=== PATIENT | male | born 1935 | race Caucasian/White ===

== ENCOUNTER 2021-03-26 11:46 | Inpatient (IN) ==
[2021-03-26] MEDS ORDERED: IOPAMIDOL 100 ML BOTTLE IV ONE (11:47)
[2021-03-26] MEDS ORDERED: LACTATED RINGERS 1,000 ML IV ONE ×2 (12:30→14:57)
--- NOTE | 2021-03-26 12:40 | Emergency Department Note ---
HPI General Chief complaint: Shortness of Breath/Dyspnea Stated complaint: sob/lethargy Time Seen by Provider: 03/26/21 12:16 Source: patient and family Mode of arrival: wheelchair Limitations: no limitations History of Present Illness HPI Narrative: Narrative: Patient is an 85-year-old male with history of atrial fibrillation who is on Eliquis. 6 days ago he fell while mowing the lawn ended up with a clavicle fr acture. A couple of days after that family noted that he seemed to be with a little bit of left facial droop but was able to move his face appropriately no definite slurred speech. He has been with chronic right shoulder pain for which she takes regular narcotic medications and is with chronic constipation. Since breaking the clavicle he had been with more pain medications and has been with worsening constipation and is waking up every 4 hours in pain because of the left shoulder pain as well as some spasm. He is brought in today because of some continued pain and generalized weakness. He has pain over the left chest as well as the left collarbone region. No headache or neck pain. No change in his medications other than the new narcotic medications. He notes at times he will get a spasm and will be a 10 out of 10 other times more moderate with the pain. Worse with palpation over the Chest and clavicle. Related Data Home Medications Medication Instructions Recorded Confirmed atorvastatin 80 mg PO DAILY 09/06/17 03/26/21 nitroglycerin 0.4 mg SL Q5M PRN 02/11/18 02/08/21 tamsulosin 0.4 mg PO DAILY 04/11/18 03/26/21 apixaban 2.5 mg tablet 2.5 mg PO BID 08/07/18 03/26/21 atorvastatin 80 mg PO QAM 03/26/21 03/26/21 escitalopram oxalate 5 mg PO QAM 03/26/21 03/26/21 hydrocodone-acetaminophen 1 tab PO Q4HP PRN 03/26/21 03/26/21 lisinopril 40 mg PO QAM 03/26/21 03/26/21 Allergies Allergy/AdvReac Type Severity Reaction Status Date / Time No Known Drug Allergies Allergy Verified 03/26/21 11:53 Review of Systems ROS ROS Narrative: Narrative: A 10 system review of systems was performed and found to be negative except as outlined above. PFSH Narrative Patient History Narrative: Narrative: Medical/Surgical/Family History All Active Problems (Updated 03/26/21 @ 20:49 by Sagar Antoine MD) Sensation of foreign body in esophagus (Acute) Clavicle fracture (Acute) Community acquired pneumonia of right lower lobe of lung (Acute) Fracture of rib of left side (Acute) Chronic right shoulder pain (Chronic) Subacromial bursitis of right shoulder joint (Chronic) Emphysema (subcutaneous) (surgical) resulting from a procedure (Chronic) History of tobacco use (Chronic) Anxiety disorder (Chronic) Presence of coronary angioplasty implant and graft (Chronic) Coronary artery disease (Chronic) Pain in thoracic spine (Chronic) Chronic pain (Chronic) Low back pain (Chronic) Atrial fibrillation, chronic (Chronic) Compression fracture of body of thoracic vertebra (Acute) Palpitations (Acute) Intraventricular conduction defect (Acute) Hypokalemia (Acute) Sternal fracture (Acute) Fall from standing (Acute) Multiple falls (Acute) Accidental medication error (Acute) Spasm of abdominal muscles (Acute) COPD exacerbation (Acute) CHF (congestive heart failure) (Acute) Hematuria (Chronic) Frequency of urination (Chronic) Hematuria (Acute) Nausea vomiting and diarrhea (Acute) Bradycardia (Acute) Hypertension, essential (Acute) History of myocardial infarct 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 60 years (Acute) Hyperlipidemia (Acute) Rash (Acute) Elevated lactic acid level (Acute) Elevated d-dimer (Acute) Medical History Anxiety disorder Atrial fibrillation, chronic on Eliquis Chronic pain Chronic right shoulder pain Coronary artery disease Emphysema (subcutaneous) (surgical) resulting from a procedure Frequency of urination Hematuria History of tobacco use Low back pain Pain in thoracic spine Subacromial bursitis of right shoulder joint Surgical History H/O thyroidectomy History of appendectomy History of surgery Vertebroplasty T11,T12, L1 w/sed 01/04/2019 Presence of coronary angioplasty implant and graft Family History Other No pertinent family history Social History Smoking Status: Former smoker Alcohol Intake Frequency: does not drink Substance Use: does not use Exam Narrative Narrative: Narrative: General: Alert, appropriately interactive, GCS [15] HEENT: NCAT, PERRL, Oral pharynx without lesion, No dental trauma or jaw malocclusion, No conjunctival pallor Neck: Trachea midline, No midline cervical spine tenderness. Chest: Left chest tenderness without crepitus. He has left chest hematoma arising from the area of the clavicle with noted deformity. No subcutaneous emphysema. Heart: Irregularly irregular and tachycardic at 1 10-1 20. Lungs: Coarse breath sounds bilaterally with patient somewhat splinting. Abdomen: Soft, nondistended, nontender : Pelvis is stable Back: Nontraumatic, No midline spine tenderness or deformity. No CVA tenderness to palpation. Skin: Noted ecchymosis over the left clavicle region. Extremity: No cyanosis or edema, pulses 1+ radial. No long bone deformities Neurologic: GCS [15], Moves all extremities in appropriate coordinated fashion with strength and sensation intact and symmetric throughout. Patient appears to be talking out the right side of his mouth with a question of some left facial droop but when I asked him to smile his facial movements are all symmetric without obvious asymmetry or deformity. General Limitations: no limitations Course Vital Signs Vital signs: Vital Signs Temperature 97.9 F 03/26/21 11:48 Pulse Rate 117 H 03/26/21 11:48 Respiratory Rate 20 03/26/21 11:48 Blood Pressure 77/51 03/26/21 11:48 Pulse Oximetry (%) 91 03/26/21 11:48 Temperature 97.9 F 03/26/21 11:48 Pulse Rate 117 H 03/26/21 11:48 Respiratory Rate 19 03/26/21 18:10 Blood Pressure 133/86 03/26/21 18:10 Pulse Oximetry (%) 91 03/26/21 11:48 [facility] Narrative Medical decision making narrative: Narrative: Patient is with transient hypotension which responded well to IV fluid hydration. I suspect that there is a degree of dehydration especially as exemplified by the BUN and creatinine being ongoing increase. Would be terrell rned the patient has not been getting up and adequately hydrating with his recent injury. CT of the head and neck did not show any intracranial hemorrhage and again patient is on anticoagulants. He was with 5 left-sided rib fractures as well as a sternal fracture. I suspect that this has affected patient's ability to take deep breaths or to cough and it would appear that he has ended up with a right lower lobe pneumonia. Patient was given IV Rocephin for treatment. He is saturating adequately well at this time. Given his recurrent falls with weakened state as well as his chest wall injuries and current pneumonia with risk for decompensation, I do not feel that he is appropriate for home discharge and he will be admitted to hospitalist service for further care and treatment. Lab Data Result diagrams: 03/26/21 13:14 03/26/21 13:14 Labs: Lab Results 03/26/21 03/26/21 03/26/21 Range/Units 13:14 13:14 13:14 WBC 9.9 (4.5-11.0) K/mcL RBC 4.29 L (4.50-5.90) M/mcL Hgb 12.5 L (13.5-16.5) g/dL Hct 40.2 L (41.0-55.0) % MCV 93.7 (80.0-100.0) fL MCH 29.1 (26.0-34.0) pg MCHC 31.1 (31.0-36.0) g/dL RDW 14.6 H (11.5-14.5) % Plt Count 229 (140-440) K/mcL MPV 10.3 (7.4-10.4) fL Neut % (Auto) 85.3 H (38.0-78.0) % Lymph % (Auto) 7.7 L (15.0-49.0) % Ceiba % (Auto) 6.6 (1.0-12.0) % Eos % (Auto) 0.2 (0.0-7.0) % Baso % (Auto) 0.2 (0.0-2.0) % Lymph # (Auto) 0.76 L (1.50-4.80) K/mcL Ceiba # (Auto) 0.65 (0.10-0.90) K/mcL Eos # (Auto) 0.02 (0.00-0.70) K/mcL Baso # (Auto) 0.02 (0.00-0.20) K/mcL Absolute Neutrophils 8.46 H (1.80-8.00) K/mcL PT 20.3 H (11.9-14.5) sec INR 1.7 H (0.9-1.1) ABG Methemoglobin (0.4-1.5) % VBG pH (7.32-7.42) U VBG pCO2 (41.0-51.0) mmHg VBG pO2 (25.0-40.0) mmHg VBG HCO3 (24.0-28.0) mmol/L VBG Total CO2 (25.0-29.0) mmol/L VBG O2 Saturation (40.0-70.0) % VBG Base Excess (-2-3) Carboxyhemoglobin (0.0-1.5) % THgb Total Hemoglobin (13.5-16.5) gm/Dl Sodium 139 (133-145) mmol/L Potassium 4.3 (3.3-5.1) mmol/L Chloride 103 (96-108) mmol/L Carbon Dioxide 24 (22-30) mmol/L Anion Gap 12.0 (8.0-16.0) BUN 39 H (8-23) mg/dL Creatinine 1.8 H (0.7-1.2) mg/dL GFR Calculation 34 Glucose 140 H (70-105) mg/dL Calcium 8.5 L (8.6-10.4) mg/dL Total Bilirubin 0.8 (0.1-1.0) mg/dL AST 15 (<40) U/L ALT 13 (<40) U/L Alkaline Phosphatase 70 (39-117) U/L Troponin T (<0.03) ng/mL Total Protein 6.1 (5.9-8.4) gm/dL Albumin 3.0 L (3.2-5.2) gm/dL Globulin 3.1 (2.2-3.7) gm/dL Albumin/Globulin Ratio 1.0 (1.0-2.3) Lipase 19 (7-60) U/L Procalcitonin (<0.10) ng/mL 03/26/21 03/26/21 03/26/21 Range/Units 13:14 13:14 13:37 WBC (4.5-11.0) K/mcL RBC (4.50-5.90) M/mcL Hgb (13.5-16.5) g/dL Hct (41.0-55.0) % MCV (80.0-100.0) fL MCH (26.0-34.0) pg MCHC (31.0-36.0) g/dL RDW (11.5-14.5) % Plt Count (140-440) K/mcL MPV (7.4-10.4) fL Neut % (Auto) (38.0-78.0) % Lymph % (Auto) (15.0-49.0) % Ceiba % (Auto) (1.0-12.0) % Eos % (Auto) (0.0-7.0) % Baso % (Auto) (0.0-2.0) % Lymph # (Auto) (1.50-4.80) K/mcL Ceiba # (Auto) (0.10-0.90) K/mcL Eos # (Auto) (0.00-0.70) K/mcL Baso # (Auto) (0.00-0.20) K/mcL Absolute Neutrophils (1.80-8.00) K/mcL PT (11.9-14.5) sec INR (0.9-1.1) ABG Methemoglobin 0.1 L (0.4-1.5) % VBG pH 7.30 L (7.32-7.42) U VBG pCO2 48.2 (41.0-51.0) mmHg VBG pO2 33.2 (25.0-40.0) mmHg VBG HCO3 23.2 L (24.0-28.0) mmol/L VBG Total CO2 24.7 L (25.0-29.0) mmol/L VBG O2 Saturation 51.2 (40.0-70.0) % VBG Base Excess -4 L (-2-3) Carboxyhemoglobin 3.8 H (0.0-1.5) % THgb Total Hemoglobin 13.5 (13.5-16.5) gm/Dl Sodium (133-145) mmol/L Potassium (3.3-5.1) mmol/L Chloride (96-108) mmol/L Carbon Dioxide (22-30) mmol/L Anion Gap (8.0-16.0) BUN (8-23) mg/dL Creatinine (0.7-1.2) mg/dL GFR Calculation Glucose (70-105) mg/dL Calcium (8.6-10.4) mg/dL Total Bilirubin (0.1-1.0) mg/dL AST (<40) U/L ALT (<40) U/L Alkaline Phosphatase (39-117) U/L Troponin T 0.02 (<0.03) ng/mL Total Protein (5.9-8.4) gm/dL Albumin (3.2-5.2) gm/dL Globulin (2.2-3.7) gm/dL Albumin/Globulin Ratio (1.0-2.3) Lipase (7-60) U/L Procalcitonin 0.12 H (<0.10) ng/mL ED POC Tests ED POC Tests: [facility] - SARS Antigen Negative CC TIME Critical Care Time Critical Care Time: Yes Total Critical Care Time: 40 Attestation: In the care and treatment of this patient with initial hypotension, multiple thoracic fractures as well as history of closed head injury on anticoagulants. This time is exclusive of separate billable procedure. Discharge Plan Patient/Caregiver Discharge Instructions Pt seen by WAREHOUSE ADMINISTRATOR/PA only: No Clinical Impression: Community acquired pneumonia of right lower lobe of lung, Clavicle fracture, Atrial fibrillation, chronic, Sternal fracture, Fracture of rib of left side Patient Disposition: Xfer As Inpt ([facility]) Condition: Fair Discharge Date/Time: 03/26/21 18:43
[2021-03-26] MEDS ORDERED: cefTRIAXone 2 GM in DEXTROSE 5% IN WATER 50 ML IV ONE ×2 (13:12→13:39)
--- NOTE | 2021-03-26 13:23 | Cat Scan Report ---
CLINICAL INFORMATION: Trauma. On anticoagulation COMPARISON: None. TECHNIQUE: 2.5 mm helical slices were obtained in the skull base to vertex. Following reconstruction, axial reformatted images were reviewed at bone and parenchymal windows. The exam was performed using radiation dose optimization techniques including, but not limited to, automated exposure control, adjustment of the mA and/or kV according to patient size and use of iterative reconstruction technique. FINDINGS: The ventricles, sulci, fissures, and cisterns are symmetrically enlarged bowel mild age-related atrophy. No extra-axial fluid collections are identified. Moderate patchy chronic ischemic changes in deep cerebral white matter expected for age.. There is no evidence of hemorrhage, mass effect, or edema. Bone windows show no osseous abnormality. IMPRESSION: Mild atrophy and chronic ischemic changes in the cerebral white matter-expected for age. There is no intracerebral hemorrhage or other posttraumatic change.. Interpreted and Authenticated by: Johnathon Turner 03/26/21
--- NOTE | 2021-03-26 13:46 | Cat Scan Report ---
CLINICAL INFORMATION: Trauma on anticoagulation. COMPARISON: Chest CT 02/09/[address] 08/27/2018 TECHNIQUE: Enteric contrast was utilized. 80 cc of Isovue-[id number] were injected intravenously, and 50 seconds later 2.5 mm helical slices were obtained from the lung apices through the subtrochanteric regions of the femurs. Following reconstruction, 2.5 mm sagittal, coronal and axial reformatted images were processed and reviewed at multiple windows and levels. 7 mm MIP reconstructions were obtained through the lungs to optimize nodule detection.The exam was performed using radiation dose optimization techniques including, but not limited to, automated exposure control, adjustment of the mA and/or kV according to patient size and use of iterative reconstruction technique. FINDINGS: Pulmonary parenchymal windows again shows complete chronic right middle lobe atelectasis. Moderate consolidated infiltrate has developed in the medial posterior lateral basilar segment right lower lobe since chest CT six weeks ago. Subsegmental atelectasis is developed in the posterior left lower lobe. Minor scarring is scattered within the lingula and throughout the upper lobes. Moderate centrilobular emphysema features chronic bronchitis with elevated lung volumes and wall thickening/ dilatation of bronchi. There are multiple bullae, predominantly within the right upper lobe, and before. There are no effusions or pneumothorax. The mediastinal windows show the heart is mildly enlarged with heavy calcific plaque in the coronary arteries. No change. Thoracic aorta and pulmonary arteries are normal in contour and caliber. Moderate hiatal hernia again noted. No hemorrhage, air or adenopathy in the mediastinum/hilum. Right thyroid lobe is diminutive and may been surgically resected-no change. Abdominal images show 7 mm simple cyst in the medial segment left hepatic lobe-stable. The gallbladder and bile ducts are normal: CBD is 5 mm. Both kidneys, adrenal glands, spleen, pancreas are normal. The aorta is normal diameter contains heavy calcific plaque. There are stenoses greater than 50% of both common iliac arteries. The other aortic branches contain plaque but no stenoses Pelvic images show marked prostate enlargement 6.2 x 4.7 cm. A 6.8 x 3.2 cm sessile soft tissue invaginating the urinary bladder base is almost certainly invagination of the peripheral enlarged prostate base. Small bilateral inguinal hernias containing only mesenteric fat. Seminal vesicles are normal. Sigmoid diverticulosis appreciated, but no evidence of diverticulitis. The remaining large bowel, appendix region, small bowel and stomach are grossly normal. There is a transverse fracture through the sternal body. The distal fragment displaced 4 mm posteriorly. No parasternal hemorrhage. There are also mild chronic T6-T7 and moderate chronic T8-T9 compression fracture which are stable. Vertebroplasty has arrested mild T11-T12 and L1 compression fractures. There are minimally displaced fractures of the left Sixth seventh eighth ninth and 10th ribs IMPRESSION: 1. Transverse mildly displaced fracture the proximal sternal body. There are also acute minimally displaced acute fractures of the left sixth through 10th ribs. No other acute posttraumatic change. 2. Moderate consolidated infiltrate in the medial posterior and lateral basilar segments of the right lower lobe-new from a comparison chest CT six weeks prior. This could represent infection or aspiration. It does not have characteristics of contusion. There is subsegmental atelectasis in the left base. 3. Moderate COPD stable. Complete chronic right middle lobe atelectasis-stable 4. Moderate hiatal hernia-stable 5. Mild cardiomegaly with heavy calcific plaque in the coronary arteries. 6. Marked prostate enlargement 7. Greater than 60% stenosis in both common iliac arteries. Please correlate with history of claudication and diminished groin pulses. 8. Sigmoid diverticulosis 9. Small bilateral inguinal hernias containing only mesenteric fat Interpreted and Authenticated by: Johnathon Turner 03/26/21
[2021-03-26 14:00] LABS: ABG Methemoglobin 0.1 % (0.4-1.5); Total Hemoglobin 13.5 gm/Dl (13.5-16.5); VBG Base Excess -4 (-2-3); VBG HCO3 23.2 mmol/L (24.0-28.0); VBG Oxygen Saturation 51.2 % (40.0-70.0); VBG PCO2 48.2 mmHg (41.0-51.0); VBG PO2 33.2 mmHg (25.0-40.0); VBG Total CO2 24.7 mmol/L (25.0-29.0)
[2021-03-26 14:05] LABS: Basophils # (Auto) 0.02 K/mcL (0.00-0.20); Basophils % (Auto) 0.2 % (0.0-2.0); Eosinophils # (Auto) 0.02 K/mcL (0.00-0.70); Eosinophils % (Auto) 0.2 % (0.0-7.0); Hematocrit 40.2 % (41.0-55.0); Hemoglobin 12.5 g/dL (13.5-16.5); Lymphocytes # (Auto) 0.76 K/mcL (1.50-4.80); Lymphocytes % (Auto) 7.7 % (15.0-49.0); Mean Cell Volume 93.7 fL (80.0-100.0); Mean Corpuscular HGB Conc 31.1 g/dL (31.0-36.0); Mean Platelet Volume 10.3 fL (7.4-10.4); Monocytes # (Auto) 0.65 K/mcL (0.10-0.90); Monocytes % (Auto) 6.6 % (1.0-12.0); Neutrophils % (Auto) 85.3 % (38.0-78.0); Platelet Count 229 K/mcL (140-440); RBC 4.29 M/mcL (4.50-5.90); Red Cell Distribution Width 14.6 % (11.5-14.5); WBC 9.9 K/mcL (4.5-11.0)
[2021-03-26 14:28] LABS: ALT/SGPT 13 U/L (<40); AST/SGOT 15 U/L (<40); Alkaline Phosphatase 70 U/L (39-117); Bilirubin,Total 0.8 mg/dL (0.1-1.0); Blood Urea Nitrogen 39 mg/dL (8-23); Calcium 8.5 mg/dL (8.6-10.4); Carbon Dioxide 24 mmol/L (22-30); Chloride 103 mmol/L (96-108); Globulin 3.1 gm/dL (2.2-3.7); Glomerular Filtration Rate 34; Glucose 140 mg/dL (70-105)
--- NOTE | 2021-03-26 14:33 | Cat Scan Report ---
CLINICAL INFORMATION: Trauma COMPARISON: None. TECHNIQUE: 0.625 mm helical slices were obtained from the skull base through the superior T2 end plate, and following reconstruction, 2.5 mm sagittal, coronal and axial reformations were then processed. The exam was reviewed at bone and soft tissue windows. The exam was performed using radiation dose optimization techniques including, but not limited to, automated exposure control, adjustment of the mA and/or kV according to patient size and use of iterative reconstruction technique. FINDINGS: The cervical spine is normal in curvature and alignment. There is no fracture or other osseous abnormality. The cervical cord is normal in contour and caliber and homogeneous attenuation-no evidence of hemorrhage. The soft tissues show moderately heavy calcific plaque in the carotid bifurcations At C2-3, mild broad disc protrusion minimally impinges the anterior thecal thecal sac At C3-4, moderate broad disc protrusion mildly impinges the anterior thecal sac. At C4-5, minimal broad disc protrusion minimally impinges the anterior thecal sac At C5-6, moderate broad disc spur, with right-sided asymmetry results in moderate right lateral recess and mild central canal narrowing mild left lateral recess narrowing. There is possible impingement of the exiting right C6 nerve root. The C6-7 and C7-T1 disc levels are normal. IMPRESSION: 1. No fracture or other acute posttraumatic change. 2. Mild Multilevel degeneration. Interpreted and Authenticated by: Johnathon Turner 03/26/21
[2021-03-26 14:51] LABS: INR 1.7 (0.9-1.1); Prothrombin Time 20.3 sec (11.9-14.5)
[2021-03-26] MEDS ORDERED: ONDANSETRON 4 MG/2 ML VIAL IV PRN ×2 (14:57→18:36)
[2021-03-26] MEDS ORDERED: HYDROmorphone 0.5 MG/0.5 ML SYRINGE IV PRN (14:57)
--- NOTE | 2021-03-26 16:44 | Internal Med History&Physical ---
HPI History of Present Illness Patient information: Note initiated : 03/26/21 at 4:34 pm Service Date, if different from initiated Date: [] Patient: Cr Aburto 85 y/o M admitted on for sob/lethargy. Chief Complaint: [] History of present illness: Mr. Aburto is a 85 year old M Who fell on the while mowing his lawn fracturing his left clavicle. He was to follow-up Dr. Hamilton. Since being home he is been feeling ill and increasingly weak. He is a poor oral intake and lethargy. Has increased shortness of breath and a cough not productive. He feels constipated. In the ED he was evaluated and found to have a rib fractures on the left 6 through 10 as well as a right lower lobe infiltrate that looks more like infectious as opposed to effusion. Also found to have acute kidney injury. Patient lives by himself and also concerned about self-care. I was told he was hypertensive in the ED although I see the lowest systolic recorded was 92. Patient denies chest pain other than the rib pain. Review of Systems: Pertinent positives as above. Denies headache/fever/chills/nausea/vomiting/chest or abdominal pain/diarrhea. 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) History of tobacco use (Chronic) Anxiety disorder (Chronic) Presence of coronary angioplasty implant and graft (Chronic) Coronary artery disease (Chronic) Pain in thoracic spine (Chronic) Chronic pain (Chronic) Low back pain (Chronic) Atrial fibrillation, chronic (Chronic) Compression fracture of body of thoracic vertebra (Acute) Palpitations (Acute) Intraventricular conduction defect (Acute) Hypokalemia (Acute) Sternal fracture (Acute) Fall from standing (Acute) Multiple falls (Acute) Accidental medication error (Acute) Spasm of abdominal muscles (Acute) COPD exacerbation (Acute) CHF (congestive heart failure) (Acute) Hematuria (Chronic) Frequency of urination (Chronic) Hematuria (Acute) Nausea vomiting and diarrhea (Acute) Bradycardia (Acute) Hypertension, essential (Acute) History of myocardial infarct 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 60 years (Acute) Hyperlipidemia (Acute) Rash (Acute) Elevated lactic acid level (Acute) Elevated d-dimer (Acute) Medical History Anxiety disorder Atrial fibrillation, chronic on Eliquis Chronic pain Chronic right shoulder pain Coronary artery disease Emphysema (subcutaneous) (surgical) resulting from a procedure Frequency of urination Hematuria History of tobacco use Low back pain Pain in thoracic spine Subacromial bursitis of right shoulder joint Surgical History H/O thyroidectomy History of appendectomy History of surgery Vertebroplasty T11,T12, L1 w/sed 01/04/2019 Presence of coronary angioplasty implant and graft Family History Other No pertinent family history Social History (Updated 03/26/21 @ 16:37 by Luis Armando Simmons DO) alcohol intake frequency: does not drink substance use type: does not use additional history: Social history: Former smoker quit 8 years ago Ambulates with a walker Lives by himself MEDS/ALLERGIES Home Medications and Allergies Home Medications Medication Instructions Recorded Confirmed Type atorvastatin 80 mg PO DAILY 09/06/17 03/26/21 History nitroglycerin 0.4 mg SL Q5M PRN 02/11/18 02/08/21 History tamsulosin 0.4 mg PO DAILY 04/11/18 03/26/21 History apixaban 2.5 mg tablet 2.5 mg PO BID 08/07/18 03/26/21 History atorvastatin 80 mg PO QAM 03/26/21 03/26/21 History escitalopram oxalate 5 mg PO QAM 03/26/21 03/26/21 History hydrocodone-acetaminophen 1 tab PO Q4HP PRN 03/26/21 03/26/21 History lisinopril 40 mg PO QAM 03/26/21 03/26/21 History Allergies Allergy/AdvReac Type Severity Reaction Status Date / Time No Known Drug Allergies Allergy Verified 03/26/21 11:53 EXAM Constitutional Vitals: Temp Pulse Resp BP Pulse Ox 97.9 F 117 H 18 102/77 91 03/26/21 11:48 03/26/21 11:48 03/26/21 16:19 03/26/21 16:19 03/26/21 11:48 Exam: General: Alert, Awake, No acute Distress Eyes/N/T: EOMI, PERRL, dry MM Head/Neck: neck supple, normocephalic atraumatic CV: RRR, No murmurs, normal s1/s2 Pulm: Mild right base rhonchi , no wheezing Abd: soft, nontender, +BS x4 Ext: no clubbing/cyanosis/edema Neuro: Alert, no focal deficits, moves all extremities, CN 2-12 grossly intact, symmetrical strength b/l upper/lower, sensations intact b/l upper/lower Skin: warm/dry DATA Data Completed and Pending Labs: Labs from last 24 hours 03/26/21 03/26/21 03/26/21 13:37 13:14 13:14 WBC RBC Hgb Hct MCV MCH MCHC RDW Plt Count MPV Neut % (Auto) Lymph % (Auto) [place] % (Auto) Eos % (Auto) Baso % (Auto) Lymph # (Auto) [place] # (Auto) Eos # (Auto) Baso # (Auto) Absolute Neutrophils PT INR ABG Methemoglobin 0.1 L VBG pH 7.30 L VBG pCO2 48.2 VBG pO2 33.2 VBG HCO3 23.2 L VBG Total CO2 24.7 L VBG O2 Saturation 51.2 VBG Base Excess -4 L Carboxyhemoglobin 3.8 H Total Hemoglobin 13.5 Sodium Potassium Chloride Carbon Dioxide Anion Gap BUN Creatinine GFR Calculation Glucose Calcium Total Bilirubin AST ALT Alkaline Phosphatase Troponin T 0.02 Total Protein Albumin Globulin Albumin/Globulin Ratio Lipase Procalcitonin 0.12 H 03/26/21 03/26/21 03/26/21 13:14 13:14 13:14 WBC 9.9 RBC 4.29 L Hgb 12.5 L Hct 40.2 L MCV 93.7 MCH 29.1 MCHC 31.1 RDW 14.6 H Plt Count 229 MPV 10.3 Neut % (Auto) 85.3 H Lymph % (Auto) 7.7 L [place] % (Auto) 6.6 Eos % (Auto) 0.2 Baso % (Auto) 0.2 Lymph # (Auto) 0.76 L [place] # (Auto) 0.65 Eos # (Auto) 0.02 Baso # (Auto) 0.02 Absolute Neutrophils 8.46 H PT 20.3 H INR 1.7 H ABG Methemoglobin VBG pH VBG pCO2 VBG pO2 VBG HCO3 VBG Total CO2 VBG O2 Saturation VBG Base Excess Carboxyhemoglobin Total Hemoglobin Sodium 139 Potassium 4.3 Chloride 103 Carbon Dioxide 24 Anion Gap 12.0 BUN 39 H Creatinine 1.8 H GFR Calculation 34 Glucose 140 H Calcium 8.5 L Total Bilirubin 0.8 AST 15 ALT 13 Alkaline Phosphatase 70 Troponin T Total Protein 6.1 Albumin 3.0 L Globulin 3.1 Albumin/Globulin Ratio 1.0 Lipase 19 Procalcitonin A/P Narrative A/P Narrative: A: *RLL pneumonia: -CURB 3 -on room air at this time *Hypotensive: 2/2 volume depletion, responded in ED to IV *Volume depletion: *REBECCA on CKD III: *Left 6-10 rib fx: from recent fall while mowing lawn *Afib: on eliquis, do not see any AV redd blockers on home meds. *COPD(no home O2): *HTN/HLD: On lisinopril *Depression: *Chronic right shoulder pain: *Generalized weakness/deconditioning: P: -Rocephin/azithromycin -pending BC/SC -IS/Acapella, prn nebs -IVF -monitor renal fxn/uop -hold home ACEI - -pt/ot -CM -ppx: eliquis DNR Time Spent With Patient Time: Total time spent is greater than 50% in coordination of care (as documented) at patient's floor/unit and/or counseling patient:
[2021-03-26] MEDS ORDERED: ACETAMINOPHEN 325 MG TABLET PO PRN (18:36)
[2021-03-26] MEDS ORDERED: MAGNESIUM SULFATE 2 GM/50 ML BAG IV PRN (18:36)
[2021-03-26] MEDS ORDERED: IPRATROPIUM/ALBUTEROL 3 ML AMPUL.NEB NEB PRN (18:36)
[2021-03-26] MEDS ORDERED: 0.9 % SODIUM CHLORIDE 1,000 ML IV SCH (18:36)
[2021-03-26] MEDS ORDERED: LACTULOSE 20 GM/30 ML ORAL.SOL PO PRN (18:36)
[2021-03-26] MEDS ORDERED: POTASSIUM CHLORIDE 20 MEQ TABLET PO PRN ×2 (18:36)
[2021-03-26] MEDS ORDERED: LABETALOL 5 MG/ML ML IV PRN (18:36)
[2021-03-26] MEDS ORDERED: POTASSIUM CHLORIDE 40 MEQ in DEXTROSE 5% IN WATER 500 ML IV PRN (18:36)
[2021-03-26] MEDS ORDERED: HYDROcodone/APAP (PP) 7.5/325MG TABLET (#4) PO PRN (18:36)
[2021-03-26] MEDS ORDERED: SENNOSIDES 1 TABLET PO PRN (18:36)
[2021-03-26] MEDS ORDERED: morphine 4 MG/ML VIAL IV PRN (18:36)
[2021-03-26] MEDS ORDERED: METOPROLOL TARTRATE 5 MG/5 ML VIAL IV PRN (18:36)
[2021-03-26] MEDS: AZITHROMYCIN 500 MG in DEXTROSE 5% IN WATER 250 ML IV SCH (19:08)
[2021-03-26] MEDS: cefTRIAXone 2 GM in DEXTROSE 5% IN WATER 50 ML IV SCH (20:56)
[2021-03-26] MEDS: APIXABAN 5 MG TABLET PO SCH (21:25)
[2021-03-26] MEDS: POLYETHYLENE GLYCOL 3350 17 GM PACKET PO SCH (21:25)
[2021-03-26] MEDS: HYDROCODONE/APAP 7.5/325MG TABLET PO PRN (21:28)
[2021-03-26] MEDS: DOCUSATE SODIUM 100 MG CAPSULE PO SCH (21:28)
[2021-03-26] MEDS: 0.9 % SODIUM CHLORIDE 10 ML SYRINGE IV SCH (21:29)
[2021-03-27 00:22] LABS: Appearance,Urine HAZY (Clear); Bilirubin,Urine Negative (Negative); Color,Urine YELLOW; Culture Indicated,Urine No; Glucose,Urine (UA) Negative (Negative); Ketones,Urine Negative (Negative); Leukocyte Esterase,Urine Negative /ug (Negative); Mucus,Urine FEW /hpf; Nitrate,Urine Negative (Negative); Protein,Urine 30 mg/dL (Negative); Specific Gravity,Urine 1.047 (1.000-1.035); Urine Blood 0.03 mg/dL (Negative); Urine RBC 1 /hpf (0-3); Urine Squamous Epithelial Cell 0 /hpf (0-4); Urine WBC 3 /hpf (0-4); Urobilinogen,Urine Negative
[2021-03-27] MEDS: HYDROCODONE/APAP 7.5/325MG TABLET PO PRN ×4 (04:37→21:18)
[2021-03-27] MEDS: 0.9 % SODIUM CHLORIDE 10 ML SYRINGE IV SCH ×3 (04:38→21:19)
--- NOTE | 2021-03-27 06:57 | Internal Med Progress Note ---
SUBJECTIVE Subjective Patient information: Note initiated : 03/27/21 at 6:53 am Service Date, if different from initiated Date: [] Patient: Cr Aburto 85 y/o M admitted on 03/26/21 for sob/lethargy. Chief Complaint: [] Interval history: History of present illness: Mr. Aburto is a 85 year old M Who fell on the 11 while mowing his lawn fracturing his left clavicle. He was to follow-up Dr. Hamilton. Since being home he is been feeling ill and increasingly weak. He is a poor oral intake and lethargy. Has increased shortness of breath and a cough not productive. He feels constipated. In the ED he was evaluated and found to have a rib fractures on the left 6 through 10 as well as a right lower lobe infiltrate that looks more like infectious as opposed to effusion. Also found to have acute kidney injury. Patient lives by himself and also concerned about self-care. I was told he was hypertensive in the ED although I see the lowest systolic recorded was 92. Patient denies chest pain other than the rib 03/27 States poor sleep last night. Has cough but unable to produce sputum. Feels the shortness of breath is better. Review of Systems: denies headache/fever/chills/nausea/vomiting/chest or abdominal pain/diarrhea. Otherwise see above. Constitutional Vitals: Vital Signs Temp Pulse Resp BP Pulse Ox 97.8 F 70 20 155/84 98 03/27/21 03:25 03/27/21 03:25 03/27/21 03:25 03/27/21 03:25 03/27/21 03:25 Period Temp Pulse Resp BP Sys/[place] Pulse Ox Last 24 Hr 97.7 F-97.9 F 65-117 6-29 77-155/51-106 91-98 Intake and Output 03/26/21 03/27/21 03/27/21 21:59 05:59 13:59 Intake Total 2250 50 Output Total 50 51 Balance 2200 -1 Weight 60.282 kg Intake & Output: Intake & Output 03/26/21 03/27/21 03/27/21 21:59 05:59 13:59 Intake Total 2250 50 Output Total 50 51 Balance 2200 -1 Weight 60.282 kg Intake: IV 2250 Sodium Chloride 0.9% 1,000 ml @ 0 75 mls/hr IV .[id number] [facility] Rx#: [id number] Zithromax 500 mg In Dextrose 5% 250 in Water 250 ml @ 250 mls/hr IV Q24H [facility] Rx#:[id number] Lactated Ringers 1,000 ml @ 2000 Wide Open IV [facility] Rx#: [id number] Oral 50 Output: Void Amount 50 50 # of times incontinent of urine 1 Other: Urine Color Dark Yellow # Voids 1 Exam: General: Alert, Awake, No acute Distress Eyes/N/T: EOMI, Head/Neck: neck supple, CV: RRR, No murmurs, Pulm: Mild right base rhonchi , no wheezing Abd: soft, nontender, +BS x4 Ext: no clubbing/cyanosis/edema Neuro: Alert, no focal deficits, moves all extremities, Skin: warm/dry OBJ DATA Labs CBC & Chem 7: 03/27/21 05:30 03/26/21 13:14 Labs: Abnormal Lab Results 03/26/21 03/26/21 03/26/21 23:38 13:37 13:14 RBC Hgb Hct RDW Neut % (Auto) Lymph % (Auto) Lymph # (Auto) Absolute Neutrophils PT INR ABG Methemoglobin 0.1 L VBG pH 7.30 L VBG HCO3 23.2 L VBG Total CO2 24.7 L VBG Base Excess -4 L Carboxyhemoglobin 3.8 H BUN Creatinine Glucose Calcium Albumin Procalcitonin 0.12 H Urine Appearance Hazy A Urine Protein 30 A Urine Mucus Few A 03/26/21 03/26/21 03/26/21 13:14 13:14 13:14 RBC 4.29 L Hgb 12.5 L Hct 40.2 L RDW 14.6 H Neut % (Auto) 85.3 H Lymph % (Auto) 7.7 L Lymph # (Auto) 0.76 L Absolute Neutrophils 8.46 H PT 20.3 H INR 1.7 H ABG Methemoglobin VBG pH VBG HCO3 VBG Total CO2 VBG Base Excess Carboxyhemoglobin BUN 39 H Creatinine 1.8 H Glucose 140 H Calcium 8.5 L Albumin 3.0 L Procalcitonin Urine Appearance Urine Protein Urine Mucus Meds: Medications Acetaminophen (Acetaminophen 325 Mg Tablet) 650 mg PO Q6HP PRN PRN Reason: PAIN/FEVER > 101 Hydrocodone Bitart/Acetaminophen (Hydrocodone/Apap 7.5/325mg Tablet) 1 tab PO Q4HP PRN; Protocol PRN Reason: Per Pain Protocol Last Admin: 03/27/21 04:37 Dose: 1 tab Documented by: Albuterol/Ipratropium (Ipratropium/Albuterol 3 Ml Ampul.Neb) 3 ml NEB Q4HP PRN PRN Reason: Shortness Of Breath Apixaban (Apixaban 5 Mg Tablet) 2.5 mg PO BID [facility] Last Admin: 03/26/21 21:25 Dose: 2.5 mg Documented by: Atorvastatin Calcium (Atorvastatin 40 Mg Tablet) 80 mg PO DAILY [facility] Docusate Sodium (Docusate Sodium 100 Mg Capsule) 100 mg PO BID [facility] Last Admin: 03/26/21 21:28 Dose: 100 mg Documented by: Escitalopram Oxalate (Escitalopram 10 Mg Tablet) 5 mg PO QAM [facility] Potassium Chloride 40 meq/ (Dextrose) 520 mls @ 130 mls/hr IV UD PRN PRN Reason: Potassium < 3 Magnesium Sulfate (Magnesium Sulfate) 2 gm in 50 mls @ 50 mls/hr IV UD PRN PRN Reason: Magnesium </= 1.6 Sodium Chloride (Sodium Chloride 0.9%) 1,000 mls @ 75 mls/hr IV .[id number] [facility] Stop: 03/27/21 21:15 Last Infusion: 03/26/21 20:09 Dose: 75 mls/hr Documented by: Ceftriaxone Sodium 2 gm/ (Dextrose) 50 mls @ 100 mls/hr IV Q24H [facility]; Protocol Last Admin: 03/26/21 20:56 Dose: Not Given Documented by: Azithromycin 500 mg/ Dextrose 250 mls @ 250 mls/hr IV Q24H [facility]; Protocol Stop: 03/28/21 19:35 Last Infusion: 03/26/21 20:08 Dose: Infused Documented by: Labetalol HCl (Labetalol 5 Mg/Ml Ml) 0 mg IV Q2HP PRN PRN Reason: Hypertension Lactulose (Lactulose 20 Gm/30 Ml Oral.Emi) 20 gm PO DAILYP PRN PRN Reason: Constipation Metoprolol Tartrate (Metoprolol Tartrate 5 Mg/5 Ml Vial) 5 mg IV Q2HP PRN PRN Reason: Tachyarrhythmias HR>110 Morphine Sulfate (Morphine 4 Mg/Ml Vial) 0 mg IV Q3HP PRN PRN Reason: Pain Ondansetron HCl (Ondansetron 4 Mg/2 Ml Vial) 4 mg IV Q4HP PRN PRN Reason: Nausea And Vomiting Polyethylene Glycol (Polyethylene Glycol 3350 17 Gm Packet) 17 gm PO DAILY [facility] Last Admin: 03/26/21 21:25 Dose: 17 gm Documented by: Potassium Chloride (Potassium Chloride 20 Meq Tablet) 40 meq PO UD PRN PRN Reason: Potssium is 3-3.5 Potassium Chloride (Potassium Chloride 20 Meq Tablet) 40 meq PO UD PRN PRN Reason: Potassium < 3 Senna (Sennosides 1 Tablet) 2 tab PO DAILYP PRN PRN Reason: Constipation Sodium Chloride (0.9 % Sodium Chloride 10 Ml Syringe) 10 ml IV Q8 [facility] Last Admin: 03/27/21 04:38 Dose: 10 ml Documented by: Tamsulosin HCl (Tamsulosin 0.4 Mg Capsule) 0.4 mg PO DAILY [facility] ABG Interpretation ABG results: 03/26/21 13:37 ABG Methemoglobin 0.1 L VBG pH 7.30 L VBG pCO2 48.2 VBG pO2 33.2 VBG HCO3 23.2 L VBG Total CO2 24.7 L VBG O2 Saturation 51.2 VBG Base Excess -4 L A/P Narrative A/P Narrative: A: *RLL pneumonia: -CURB 3 -place on O2 last night 3L sats mid to high 90's *Hypotensive: 2/2 volume depletion, responded in ED to IV *Volume depletion: improved *REBECCA on CKD III: *Left 6-10 rib fx: from recent fall while mowing lawn *Afib: on eliquis, do not see any AV redd blockers on home meds. *COPD(no home O2): *HTN/HLD: On lisinopril *Depression: *Chronic right shoulder pain: *Generalized weakness/deconditioning: P: -Rocephin/azithromycin -pending BC/SC -IS/Acapella, prn nebs, wean O2 -IVF -monitor renal fxn/uop -hold home ACEI - -pt/ot -CM -ppx: eliquis DNR Time Spent With Patient Time: Total time spent is greater than 50% in coordination of care (as documented) at patient's floor/unit and/or counseling patient:
[2021-03-27 07:25] LABS: Hematocrit 34.7 % (41.0-55.0); Hemoglobin 10.7 g/dL (13.5-16.5); Mean Corpuscular HGB Conc 30.8 g/dL (31.0-36.0); Mean Platelet Volume 10.3 fL (7.4-10.4); Platelet Count 224 K/mcL (140-440); RBC 3.73 M/mcL (4.50-5.90); Red Cell Distribution Width 14.5 % (11.5-14.5); WBC 7.8 K/mcL (4.5-11.0)
[2021-03-27] MEDS ORDERED: diphenhydrAMINE 25 MG CAPSULE PO PRN (07:53)
[2021-03-27 08:04] LABS: ALT/SGPT 12 U/L (<40); AST/SGOT 16 U/L (<40); Albumin 2.6 gm/dL (3.2-5.2); Albumin/Globulin Ratio 0.9 (1.0-2.3); Alkaline Phosphatase 59 U/L (39-117); Bilirubin,Direct 0.2 mg/dL (<0.3); Bilirubin,Total 0.6 mg/dL (0.1-1.0); Blood Urea Nitrogen 31 mg/dL (8-23); Calcium 8.3 mg/dL (8.6-10.4); Carbon Dioxide 26 mmol/L (22-30); Chloride 104 mmol/L (96-108); Globulin 2.9 gm/dL (2.2-3.7); Glomerular Filtration Rate 46; Glucose 85 mg/dL (70-105); Lactate Dehydrogenase 186 U/L (135-225); Triglycerides 63 mg/dL (<150); Uric Acid 7.1 mg/dL (2.5-8.0)
[2021-03-27] MEDS ORDERED: POTASSIUM CHLORIDE 40 MEQ in DEXTROSE 5% IN WATER 500 ML IV ONE (09:01)
[2021-03-27] MEDS: TAMSULOSIN 0.4 MG CAPSULE PO SCH (09:06)
[2021-03-27] MEDS: ESCITALOPRAM 10 MG TABLET PO SCH (09:06)
[2021-03-27] MEDS: APIXABAN 5 MG TABLET PO SCH ×2 (09:06→21:18)
[2021-03-27] MEDS: DOCUSATE SODIUM 100 MG CAPSULE PO SCH ×2 (09:06→21:19)
[2021-03-27] MEDS: ATORVASTATIN 40 MG TABLET PO SCH (09:06)
[2021-03-27] MEDS: POLYETHYLENE GLYCOL 3350 17 GM PACKET PO SCH (09:07)
[2021-03-27] MEDS: cefTRIAXone 2 GM in DEXTROSE 5% IN WATER 50 ML IV SCH (09:17)
[2021-03-27] MEDS: AZITHROMYCIN 500 MG in DEXTROSE 5% IN WATER 250 ML IV SCH (12:06)
[2021-03-27 13:24] LABS: Lymphocytes % 18 % (15-49); Monocytes % (Manual) 10 % (1-12); Platelet Estimate NORMAL (Normal); RBC Morphology NORMAL (Normal); Segmented Neutrophils % 72 % (38-78)
[2021-03-27] MEDS: MELATONIN 3 MG TABLET PO SCH (21:18)
[2021-03-28] MEDS: HYDROCODONE/APAP 7.5/325MG TABLET PO PRN ×3 (01:05→20:50)
[2021-03-28] MEDS: 0.9 % SODIUM CHLORIDE 10 ML SYRINGE IV SCH ×3 (05:15→23:36)
--- NOTE | 2021-03-28 07:20 | Internal Med Progress Note ---
SUBJECTIVE Subjective Patient information: Note initiated : 03/28/21 at 7:17 am Service Date, if different from initiated Date: [] Patient: Cr Aburto 85 y/o M admitted on 03/26/21 for sob/lethargy. Chief Complaint: [] Interval history: History of present illness: Mr. Aburto is a 85 year old M Who fell on the while mowing his lawn fracturing his left clavicle. He was to follow-up Dr. Hamilton. Since being home he is been feeling ill and increasingly weak. He is a poor oral intake and lethargy. Has increased shortness of breath and a cough not productive. He feels constipated. In the ED he was evaluated and found to have a rib fractures on the left 6 through 10 as well as a right lower lobe infiltrate that looks more like infectious as opposed to effusion. Also found to have acute kidney injury. Patient lives by himself and also concerned about self-care. I was told he was hypertensive in the ED although I see the lowest systolic recorded was 92. Patient denies chest pain other than the rib 03/27 States poor sleep last night. Has cough but unable to produce sputum. Feels the shortness of breath is better. 03/28 States poor sleep again. Has cough occasionally productive. No other pains or complaints. On room air. Review of Systems: denies headache/fever/chills/nausea/vomiting/chest or abdominal pain/diarrhea. Otherwise see above. Constitutional Vitals: Vital Signs Temp Pulse Resp BP Pulse Ox 97.5 F 61 14 168/91 93 03/28/21 03:10 03/28/21 03:10 03/28/21 03:10 03/28/21 03:10 03/28/21 03:10 Period Temp Pulse Resp BP Sys/[place] Pulse Ox Last 24 Hr 97.4 F-99 F 61-88 14-20 119-168/75-91 93-96 Intake and Output 03/27/21 03/28/21 03/28/21 21:59 05:59 13:59 Intake Total 980 225 Output Total 200 75 Balance 780 150 Weight 61.326 kg Intake & Output: Intake & Output 03/27/21 03/28/21 03/28/21 21:59 05:59 13:59 Intake Total 980 225 Output Total 200 75 Balance 780 150 Weight 61.326 kg Intake: Oral 980 225 Output: Void Amount 200 75 Other: Meal Dinner Percent of Meal Consumed 25% Feeding Ability Assist with Tray Set Up Urine Appearance Clear Clear Urine Color Bright Yellow Dark Yellow Urine Odor Strong Normal Stool Size Large Small Stool Color Brown Brown Yellow Stool Consistency Soft Liquid Formed Loose # Bowel Movements 1 1 # of times incontinent of 1 Bowels Exam: Alert, Awake, No acute Distress Eyes/N/T: EOMI, Head/Neck: neck supple, CV: RRR, No murmurs, Pulm: decreased rhonchi , no wheezing Abd: soft, nontender, +BS x4 Ext: no clubbing/cyanosis/edema Neuro: Alert, no focal deficits, moves all extremities, Skin: warm/dry OBJ DATA Labs CBC & Chem 7: 03/27/21 05:30 03/27/21 05:30 Labs: Abnormal Lab Results 03/27/21 03/27/21 03/26/21 05:30 05:30 23:38 RBC 3.73 L Hgb 10.7 L Hct 34.7 L MCHC 30.8 L RDW Neut % (Auto) Lymph % (Auto) Lymph # (Auto) Absolute Neutrophils PT INR ABG Methemoglobin VBG pH VBG HCO3 VBG Total CO2 VBG Base Excess Carboxyhemoglobin Anion Gap 7.0 L BUN 31 H Creatinine 1.4 H Glucose Calcium 8.3 L C-Reactive Protein 8.00 H Total Protein 5.5 L Albumin 2.6 L Albumin/Globulin Ratio 0.9 L Procalcitonin Urine Appearance Hazy A Urine Protein 30 A Urine Mucus Few A 03/26/21 03/26/21 03/26/21 13:37 13:14 13:14 RBC Hgb Hct MCHC RDW Neut % (Auto) Lymph % (Auto) Lymph # (Auto) Absolute Neutrophils PT 20.3 H INR 1.7 H ABG Methemoglobin 0.1 L VBG pH 7.30 L VBG HCO3 23.2 L VBG Total CO2 24.7 L VBG Base Excess -4 L Carboxyhemoglobin 3.8 H Anion Gap BUN Creatinine Glucose Calcium C-Reactive Protein Total Protein Albumin Albumin/Globulin Ratio Procalcitonin 0.12 H Urine Appearance Urine Protein Urine Mucus 03/26/21 03/26/21 13:14 13:14 RBC 4.29 L Hgb 12.5 L Hct 40.2 L MCHC RDW 14.6 H Neut % (Auto) 85.3 H Lymph % (Auto) 7.7 L Lymph # (Auto) 0.76 L Absolute Neutrophils 8.46 H PT INR ABG Methemoglobin VBG pH VBG HCO3 VBG Total CO2 VBG Base Excess Carboxyhemoglobin Anion Gap BUN 39 H Creatinine 1.8 H Glucose 140 H Calcium 8.5 L C-Reactive Protein Total Protein Albumin 3.0 L Albumin/Globulin Ratio Procalcitonin Urine Appearance Urine Protein Urine Mucus Meds: Medications Acetaminophen (Acetaminophen 325 Mg Tablet) 650 mg PO Q6HP PRN PRN Reason: PAIN/FEVER > 101 Hydrocodone Bitart/Acetaminophen (Hydrocodone/Apap 7.5/325mg Tablet) 1 tab PO Q4HP PRN; Protocol PRN Reason: Per Pain Protocol Last Admin: 03/28/21 05:14 Dose: 1 tab Documented by: Albuterol/Ipratropium (Ipratropium/Albuterol 3 Ml Ampul.Neb) 3 ml NEB Q4HP PRN PRN Reason: Shortness Of Breath Apixaban (Apixaban 5 Mg Tablet) 2.5 mg PO BID [facility] Last Admin: 03/27/21 21:18 Dose: 2.5 mg Documented by: Atorvastatin Calcium (Atorvastatin 40 Mg Tablet) 80 mg PO DAILY [facility] Last Admin: 03/27/21 09:06 Dose: 80 mg Documented by: Diphenhydramine HCl (Diphenhydramine 25 Mg Capsule) 25 mg PO HSP PRN PRN Reason: Insomnia Docusate Sodium (Docusate Sodium 100 Mg Capsule) 100 mg PO BID [facility] Last Admin: 03/27/21 21:19 Dose: 100 mg Documented by: Escitalopram Oxalate (Escitalopram 10 Mg Tablet) 5 mg PO QAM [facility] Last Admin: 03/27/21 09:06 Dose: 5 mg Documented by: Potassium Chloride 40 meq/ (Dextrose) 520 mls @ 130 mls/hr IV UD PRN PRN Reason: Potassium < 3 Magnesium Sulfate (Magnesium Sulfate) 2 gm in 50 mls @ 50 mls/hr IV UD PRN PRN Reason: Magnesium </= 1.6 Ceftriaxone Sodium 2 gm/ (Dextrose) 50 mls @ 100 mls/hr IV Q24H [facility]; Protocol Last Infusion: 03/27/21 09:50 Dose: Infused Documented by: Azithromycin 500 mg/ Dextrose 250 mls @ 250 mls/hr IV Q24H [facility]; Protocol Stop: 03/28/21 19:35 Last Infusion: 03/27/21 13:10 Dose: Infused Documented by: Labetalol HCl (Labetalol 5 Mg/Ml Ml) 0 mg IV Q2HP PRN PRN Reason: Hypertension Lactulose (Lactulose 20 Gm/30 Ml Oral.Emi) 20 gm PO DAILYP PRN PRN Reason: Constipation Melatonin (Melatonin 3 Mg Tablet) 3 mg PO QHS [facility] Last Admin: 03/27/21 21:18 Dose: 3 mg Documented by: Metoprolol Tartrate (Metoprolol Tartrate 5 Mg/5 Ml Vial) 5 mg IV Q2HP PRN PRN Reason: Tachyarrhythmias HR>110 Morphine Sulfate (Morphine 4 Mg/Ml Vial) 0 mg IV Q3HP PRN PRN Reason: Pain Ondansetron HCl (Ondansetron 4 Mg/2 Ml Vial) 4 mg IV Q4HP PRN PRN Reason: Nausea And Vomiting Polyethylene Glycol (Polyethylene Glycol 3350 17 Gm Packet) 17 gm PO DAILY [facility] Last Admin: 03/27/21 09:07 Dose: Not Given Documented by: Potassium Chloride (Potassium Chloride 20 Meq Tablet) 40 meq PO UD PRN PRN Reason: Potssium is 3-3.5 Potassium Chloride (Potassium Chloride 20 Meq Tablet) 40 meq PO UD PRN PRN Reason: Potassium < 3 Senna (Sennosides 1 Tablet) 2 tab PO DAILYP PRN PRN Reason: Constipation Sodium Chloride (0.9 % Sodium Chloride 10 Ml Syringe) 10 ml IV Q8 [facility] Last Admin: 03/28/21 05:15 Dose: 10 ml Documented by: Tamsulosin HCl (Tamsulosin 0.4 Mg Capsule) 0.4 mg PO DAILY [facility] Last Admin: 03/27/21 09:06 Dose: 0.4 mg Documented by: ABG Interpretation ABG results: 03/26/21 13:37 ABG Methemoglobin 0.1 L VBG pH 7.30 L VBG pCO2 48.2 VBG pO2 33.2 VBG HCO3 23.2 L VBG Total CO2 24.7 L VBG O2 Saturation 51.2 VBG Base Excess -4 L A/P Narrative A/P Narrative: A: *RLL pneumonia: -CURB 3 -on room air *Hypotensive: 2/2 volume depletion, responded in ED to IV *Volume depletion: improved *REBECCA on CKD III: *Left 6-10 rib fx: from recent fall while mowing lawn *Afib: on eliquis, do not see any AV redd blockers on home meds, HR controlled *COPD(no home O2): *HTN/HLD: On lisinopril *Depression: *Chronic right shoulder pain: *Generalized weakness/deconditioning: P: -Rocephin/azithromycin -pending BC/SC -IS/Acapella, prn nebs, wean O2 -IVF -monitor renal fxn/uop -home ACEI held initially - -pt/ot -CM for SNF vs C -ppx: eliquis DNR Time Spent With Patient Time: Total time spent is greater than 50% in coordination of care (as documented) at patient's floor/unit and/or counseling patient:
[2021-03-28 08:56] LABS: Blood Urea Nitrogen 22 mg/dL (8-23); Calcium 8.7 mg/dL (8.6-10.4); Carbon Dioxide 26 mmol/L (22-30); Chloride 105 mmol/L (96-108); Glomerular Filtration Rate 61; Glucose 83 mg/dL (70-105)
[2021-03-28] MEDS: cefTRIAXone 2 GM in DEXTROSE 5% IN WATER 50 ML IV SCH (09:28)
[2021-03-28] MEDS: ESCITALOPRAM 10 MG TABLET PO SCH (09:28)
[2021-03-28] MEDS: DOCUSATE SODIUM 100 MG CAPSULE PO SCH ×2 (09:28→20:50)
--- NOTE | 2021-03-28 09:28 | Discharge Summary ---
Discharge Provider Provider Patient information: Note initiated : 03/28/21 at 9:27 am Service Date, if different from initiated Date: [] Patient: Cr Aburto 85 y/o M admitted on 03/26/21 for sob/lethargy. Chief Complaint: [] Date of admission: 03/26/21 18:32 Discharge date: 03/29/21 Primary care physician: Kali Chau Consults: 03/26/21 16:05 Consult to Physician [CONS] Stat Comment: Consulting Provider: Luis Armando Simmons Reason For Exam: Physician to Consult Discharge Meds Discharge Medications Home Medications atorvastatin 80 mg PO DAILY 09/06/17 [History Confirmed 03/26/21 Last Taken Unknown] tamsulosin 0.4 mg PO DAILY 04/11/18 [History Confirmed 03/26/21 Last Taken Unknown] apixaban 2.5 mg tablet 2.5 mg PO BID 08/07/18 [History Confirmed 03/26/21 Last Taken Unknown] atorvastatin 80 mg PO QAM 03/26/21 [History Confirmed 03/26/21 Last Taken Unknown] escitalopram oxalate 5 mg PO QAM 03/26/21 [History Confirmed 03/26/21 Last Taken Unknown] hydrocodone-acetaminophen 1 tab PO Q4HP PRN 03/26/21 [History Confirmed 03/26/21 Last Taken Unknown] lisinopril 40 mg PO QAM 03/26/21 [History Confirmed 03/26/21 Last Taken Unknown] amoxicillin-pot clavulanate [Augmentin] 1 tab PO Q12H #5 tab 03/28/21 [Rx Last Taken Unknown] COURSE Hospital Course Hospital course: Interval history: History of present illness: Mr. Aburto is a 85 year old M Who fell on the while mowing his lawn fracturing his left clavicle. He was to follow-up Dr. Hamilton. Since being home he is been feeling ill and increasingly weak. He is a poor oral intake and lethargy. Has increased shortness of breath and a cough not productive. He feels constipated. In the ED he was evaluated and found to have a rib fractures on the left 6 through 10 as well as a right lower lobe infiltrate that looks more like infectious as opposed to effusion. Also found to have acute kidney injury. Patient lives by himself and also concerned about self-care. I was told he was hypertensive in the ED although I see the lowest systolic recorded was 92. Patient denies chest pain other than the rib 03/27 States poor sleep last night. Has cough but unable to produce sputum. Feels the shortness of breath is better. 03/28 States poor sleep again. Has cough occasionally productive. No other pains or complaints. On room air. 03/29 Doing well. No pains or complaints overnight events. Good renal function. On room air. Discharge to SNF A: *RLL pneumonia: *Hypotensive: 2/2 volume depletion, responded in ED to IV *Volume depletion: *REBECCA on CKD III: *Left 6-10 rib fx: from recent fall while mowing lawn *Afib: on eliquis, do not see any AV redd blockers on home meds, HR controlled *COPD(no home O2): *HTN/HLD: On lisinopril *Depression: *Chronic right shoulder pain: *Generalized weakness/deconditioning: Discharge diagnosis: Pneumonia hypotension volume depletion acute kidney injury rib fractures Secondary discharge diagnosis: A. fib COPD depression Time Spent with Patient Time attestation: Total time spent providing and/or coordinating discharge services: Time spent: Greater than 30 minutes EXAM Constitutional Vitals: Temp Pulse Resp BP Pulse Ox 97.4 F 63 14 178/86 90 03/28/21 08:00 03/28/21 08:00 03/28/21 08:00 03/28/21 08:00 03/28/21 08:00 Discharge Data Data Completed and Pending Labs on day of discharge: Labs from last 24 hours 03/28/21 03/27/21 07:14 05:30 Seg Neutrophils % 72 Lymphocytes % 18 Monocytes % (Manual) 10 Platelet Estimate Normal RBC Morphology Normal Sodium 138 Potassium 4.1 Chloride 105 Carbon Dioxide 26 Anion Gap 7.0 L BUN 22 Creatinine 1.1 GFR Calculation 61 Glucose 83 Calcium 8.7 Preliminary micro results at discharge 03/27/21 12:30 Gram Stain - Preliminary Sputum source - Expectorated Discharge Plan Patient/Caregiver Discharge Instructions Activity: increase activity as tolerated Diet: Regular Diet Activity Restrictions/Additional Instructions: Follow-up with PCP in 3 to 7 days Prescriptions: New amoxicillin-pot clavulanate [Augmentin] 875-125 mg tablet 1 tab PO Q12H Qty: 5 RF: 0 Continued apixaban [Eliquis] 2.5 mg tablet 2.5 mg PO BID RF: 0 atorvastatin 80 MG tablet 80 mg PO DAILY RF: 0 tamsulosin 0.4 MG capsule 0.4 mg PO DAILY RF: 0 escitalopram oxalate 5 mg tablet 5 mg PO QAM RF: 0 atorvastatin 80 mg tablet 80 mg PO QAM RF: 0 hydrocodone-acetaminophen 7.5-325 mg tablet 1 tab PO Q4HP PRN (Reason: Pain) RF: 0 lisinopril 40 mg tablet 40 mg PO QAM RF: 0 Follow Up Plan Patient Disposition: Xfer SNF Prognosis: Fair Rehab Potential: Fair I certify that the patient requires SNF services: Yes Overall status at discharge: patient is progressing back to baseline Discharge Orders: Discharge Order (Routine); Ordered 03/29/21 Ordered By: Luis Armando Simmons
[2021-03-28] MEDS: POLYETHYLENE GLYCOL 3350 17 GM PACKET PO SCH (09:29)
[2021-03-28] MEDS: AZITHROMYCIN 500 MG in DEXTROSE 5% IN WATER 250 ML IV SCH (09:29)
[2021-03-28] MEDS: TAMSULOSIN 0.4 MG CAPSULE PO SCH (09:29)
[2021-03-28] MEDS: APIXABAN 5 MG TABLET PO SCH ×2 (09:29→20:49)
[2021-03-28] MEDS: LISINOPRIL 20 MG TABLET PO SCH (09:29)
[2021-03-28] MEDS: ATORVASTATIN 40 MG TABLET PO SCH (09:29)
[2021-03-28] MEDS: MELATONIN 3 MG TABLET PO SCH (20:49)
[2021-03-29] MEDS: HYDROCODONE/APAP 7.5/325MG TABLET PO PRN ×2 (03:08→07:04)
[2021-03-29] MEDS: 0.9 % SODIUM CHLORIDE 10 ML SYRINGE IV SCH (05:36)
[2021-03-29] MEDS: ATORVASTATIN 40 MG TABLET PO SCH (09:52)
[2021-03-29] MEDS: APIXABAN 5 MG TABLET PO SCH (09:54)
[2021-03-29] MEDS: DOCUSATE SODIUM 100 MG CAPSULE PO SCH (09:54)
[2021-03-29] MEDS: ESCITALOPRAM 10 MG TABLET PO SCH (09:55)
[2021-03-29] MEDS: LISINOPRIL 20 MG TABLET PO SCH (09:56)
[2021-03-29] MEDS: TAMSULOSIN 0.4 MG CAPSULE PO SCH (09:57)
[2021-03-29] MEDS: POLYETHYLENE GLYCOL 3350 17 GM PACKET PO SCH (10:05)
[2021-03-29] MEDS: cefTRIAXone 2 GM in DEXTROSE 5% IN WATER 50 ML IV SCH (10:12)
[2021-03-29] MEDS ORDERED: AMOXICILLIN/POTASSIUM CLAV 875 MG TABLET PO ONE (10:15)
== END 2021-03-29 12:00 | DRG 194 ==
LOC: ED 11:46 → MEDSUR 18:32
PROVIDERS: ADMIT Internal Medicine; ATTEND Internal Medicine